=== PATIENT | male | born 1965 | race Caucasian/White ===

== ENCOUNTER 2020-07-12 17:36 | Emergency (ER) | payer MEDICARE, SELFPAY ==
[2020-07-12 17:37] VITALS: BP 134/72; PULSE 89; RESP 16; TEMP 36.6; O2SAT 96; BMI 28.9
--- NOTE | 2020-07-12 17:50 | ED.VIS.GEN ---
History of Present Illness Chief Complaint: Rash Informant: Patient Onset: Weeks Context: Gradual Onset Current Severity: Moderate Maximum Severity: Moderate Narrative: Patient presents with what he believes is an allergic reaction. He reports redness, itching, and burning sensation to his face, hands, neck for the past 2 weeks. Patient states he had a similar episode a couple years ago when he was drinking monster energy drinks. When he stopped drinking those his symptoms resolved. He states he is not currently drinking energy drinks and does not know what he may be reacting to. He did take a few Benadryl earlier today. He denies any intraoral lesions. No difficulty swallowing or breathing. - Past Medical History (1) GERD (gastroesophageal reflux disease) Status: Acute (2) Hepatitis C Status: Acute (3) COPD (chronic obstructive pulmonary disease) Status: Chronic Past Medical History - Allergies and Home Meds Allergies/Adverse Reactions: Allergies Penicillins Allergy (Verified 07/12/20 17:38) Hives Primary Care Physician: Niki Dunn [employer], [employer] [NON-STAFF] - 1-2 Weeks Review of Systems General: Denies: Chills, Fever Eyes: Denies: Visual changes - bilaterally ENT: Denies: Bilateral ear pain Cardiovascular: Denies: Chest pain Respiratory: Denies: Dyspnea, Cough Gastrointestinal: Denies: Abdominal pain, Vomiting, Diarrhea Musculoskeletal: Denies: Extremity Pain Skin: Reports: Rash Neurological: Denies: Headache Hematologic: Denies: Easy bruising, Easy bleeding Allergy: Denies: Uticaria Physical Exam Vital Signs/Narrative: Vital Signs Temp Pulse Resp BP Pulse Ox 07/12/20 17:37 97.8 F 89 16 134/72 H 96 Inital Vital Signs reviewed: Yes General: Well nourished, Well developed Head: Normocephalic ENT: Moist mucous membranes Cardiovascular: Regular rate, Regular rhythm Respiratory: No distress, CTA bilaterally Abdomen: Soft, Nontender Skin: - - Skin erythema over the face and upper neck. Slight skin thickening. No blisters or open wounds. Neurological: Alert, Oriented x3 Psychological: Normal affect Diagnostic/Tx/Re-eval - Medical Decision Making Patient was given Benadryl, prednisone, Pepcid. On repeat evaluation he states he started to feel some improvement. He will be given prescriptions for the same. ED Disposition - Plan for ED Patient: Disposition: Home or Assisted Living Diagnosis: Allergic reaction Instructions: ED General Allergic Reactions Prescriptions: DiphenhydrAMINE [Benadryl] 50 mg PO TID PRN PRN #30 capsule PRN Reason: Rash/Topical Irritation Transmission Status: Pending to [facility] Prednisone [Deltasone] 60 mg PO DAILY #15 tablet Transmission Status: Pending to [facility] Famotidine [Pepcid] 20 mg PO BID #28 tab Transmission Status: Pending to [facility] Referrals: Traci Church MD [STAFF PHYSICIAN] - As Needed
[2020-07-12] MEDS: predniSONE 20 MG Tablet 60 MG PO (17:53)
[2020-07-12] MEDS: Famotidine 20 MG Tablet 40 MG PO (17:53)
[2020-07-12] MEDS: DiphenhydrAMINE 25 MG Capsule 50 MG PO (17:55)
[2020-07-12 20:14] VITALS: RESP 16
== END 2020-07-12 20:15 | disposition home or self-care (01) ==
LOC: ED 17:59
PROVIDERS: Emergency Provider Emergency Medicine
DX: T78.40XA Allergy, unspecified, initial encounter (principal); X58.XXXA Exposure to other specified factors, initial encounter; K21.9 Gastro-esophageal reflux disease without esophagitis; J44.9 Chronic obstructive pulmonary disease, unspecified; Z86.19 Personal history of other infectious and parasitic diseases
CPT/HCPCS: 99283

== ENCOUNTER 2020-07-16 10:11 | Emergency (ER) | payer MEDICARE, SELFPAY ==
[2020-07-16 10:13] VITALS: BP 132/91; PULSE 95; RESP 16; TEMP 36.8; O2SAT 98; BMI 29.1
--- NOTE | 2020-07-16 10:31 | ED.DCSUM_ITS ---
- ER Visit Summary Date of Service: 07/16/20 Chief Complaint: [Allergic reaction] History of Present Illness: The patient is a 55 M [presents to the emergency department complaint of an allergic reaction that started a week and a half ago. Patient complains of redness to the face as well as itching and burning skin. Patient has never had this reaction before. He denies any new medications or new soaps or detergents. Patient is on 3 medications that he takes chronically including Thorazine, Cogentin, and BuSpar. Patient states symptoms are particularly worse in sunlight. Patient was seen in the emergency department several days ago and prescribed Benadryl, Pepcid, and prednisone. Patient state s his symptoms are no better. Patient denies recent illness. He denies lip or tongue swelling or difficulty breathing.] Patient states that as long as he keeps compresses on his face the sensation feels better but now the skin is starting to break down a little bit in the corners of his eyes. Patient denies any fevers. Patient states that oftentimes he feels fine in the mornings but as soon as he goes outside symptoms really tend to get much worse. Physical Examination: [HEENT-PERRLA, EOMI. Cranial nerves II through XII grossly intact. TMs clear. Mucous membranes moist. No adenopathy. Patient does have diffuse facial erythema involving the neck as well. No evidence of erythema noted to the chest or abdomen or lower extremities. Does have some faint erythema to the dorsum of the hands. Cardiovascular-regular rate and rhythm without murmur or ectopy Lungs-clear to auscultation, chest wall stable without crepitus or subcu emphysema Abdomen-normoactive bowel sounds, soft, nontender, no rebound or rigidity, no peritoneal signs. Extremities-intact ?4, normal range of motion, normal pulses, atraumatic] Test Results: [CBC with differential is normal. Chemistries unremarkable. LFTs were normal.] Emergency Department Course and Treatment: [] Treatment Plan: [At this point I suspect a possible photosensitivity reaction related to the the current medications he is taking specifically the Thorazine. I advised him to discuss this with his psychiatrist to see if they want him to discontinue it and potentially add a different medication to treat his psychiatric issues. I will also refer patient to dermatology. Patient to continue with his prednisone and Benadryl and Pepcid.] Disposition: [Discharged home in stable condition] Impression: [Allergic reaction/photosensitivity-suspect secondary to Thorazine] This note was generated with [employer] dictation software. It may contain incorrect words, spelling, and punctuation that were not noted in review of the chart prior to signing ED Disposition - Plan for ED Patient: Referrals: Care Physician,No Primary [Primary Care Provider] -
[2020-07-16 11:26] LABS: Absolute Lymphocyte Count 2.55 X10^3/uL (0.83-4.51); Absolute Neutrophil Count 7.6 X10^3/uL (2.0-7.7); Basophil# 0.03 X10^3/uL; Basophil% 0.3 % (0-1); Eosinophil# 0.04 X10^3/uL; Eosinophils% 0.4 % (0-5); Hemoglobin 16.7 g/dL (13.0-16.5); Lymphocyte # 2.55 X10^3/ul (4.0); Lymphocyte % 22.6 % (19-41); Mean Corp Hgb Conc 30.9 g/dL (32-36); Mean Corpuscular Hgb 28.6 pg (27.0-32.0); Mean Corpuscular Volume 92.5 fL (80-94); Mean Platelet Vol. 10.8 fl (6.2-12.0); Monocyte% 8.9 % (0-10); NRBC Flagged by Analyzer 0 % (0-5); Neutrophil # 7.64 X10^3/uL (2.7-7.7); Neutrophil % 67.5 % (47-70); Platelet Count 230 K/mm3 (150-450); RBC Distribution Width CV 14.3 % (11.6-14.6); Red Blood Count 5.84 M/mm3 (4.6-6.2); White Blood Count 11.3 K/mm3 (4.4-11.0)
[2020-07-16 11:42] LABS: ALB/GLOB Ratio 0.8 RATIO (0.9-2.4); AST(SGOT) 25 U/L (15-37); Alanine Aminotransfer ALT/SGPT 57 U/L (16-61); Albumin, Serum 3.6 g/dL (3.2-5.0); Alkaline Phosphatase 87 U/L (45-117); Anion Gap 4 (5-15); BUN 13 mg/dL (7-18); BUN/Creat Ratio 14.7 RATIO (10-20); Calcium,Total 8.9 mg/dL (8.5-10.1); Chloride 107 mmol/L (98-107); Creatinine, Serum 0.88 mg/dL (0.70-1.30); EST Glomerular Filtration Rate 95 mL/min (>60); Est Glom Filt Rate - Afr Amer 114 mL/min (>60); Estimated Creatinine Clearance 86.59 ml/min; Globulin 4.3 g/dL (2.2-4.2); Glucose 82 mg/dL (74-106); Potassium 3.6 mmol/L (3.5-5.1); Protein, Total 7.9 g/dL (6.4-8.2); Sodium Level 135 mmol/L (136-145)
--- NOTE | 2020-07-16 11:57 | ED.DEP ---
ED Disposition - Plan for ED Patient: Instructions: ED General Allergic Reactions, ED Allergic Reaction Local Other Referrals: Care Physician,No Primary [Primary Care Provider] - Arnoldo Cisneros MD [STAFF PHYSICIAN] - 3-5 Days Additional Instructions: Call your psychiatrist to discontinue your Thorazine as I suspect you may be having a photosensitivy reaction to it.
[2020-07-16 12:16] VITALS: BP 117/96; PULSE 96; RESP 18; O2SAT 95
== END 2020-07-16 12:17 | disposition home or self-care (01) ==
LOC: ED 11:35
PROVIDERS: Emergency Provider Emergency Medicine
DX: T78.40XA Allergy, unspecified, initial encounter (principal); R21 Rash and other nonspecific skin eruption; X58.XXXA Exposure to other specified factors, initial encounter; Z72.0 Tobacco use
CPT/HCPCS: 80053; 85025; 99282; A4216

== ENCOUNTER 2020-08-12 14:27 | Emergency (ER) | payer MEDICARE, SELFPAY ==
[2020-08-12 14:28] VITALS: BP 123/86; PULSE 90; RESP 18; TEMP 36.6; O2SAT 98; BMI 28.5
--- NOTE | 2020-08-12 15:01 | CT_ITS ---
HISTORY: hemoptysis EXAMINATION: CTA Chest WO/W Contrast Injection TECHNIQUE: Helically acquired images were obtained of the chest following IV contrast as per pulmonary angiogram protocol with 3D reconstructions. A radiation dose optimization technique was used for this scan. IV Contrast dosage and agent: 100mL Isovue-370 COMPARISON: None FINDINGS: LUNGS, PLEURA AND LARGE AIRWAYS: Small focus of reticular airspace disease right apex, no masses, consolidation, or edema. No pleural effusion or thickening. No pneumothorax. THYROID: No thyroid lesions. PULMONARY ARTERIES: Normal in caliber. No pulmonary embolism. AORTA AND GREAT VESSELS: No aneurysm or dissection. HEART AND PERICARDIUM: Heart size is normal. No pericardial effusion. No signs of right heart strain. MEDIASTINUM AND MARIA LUISA: No mediastinal or hilar adenopathy. Esophagus is unremarkable. Small hiatal hernia. UPPER ABDOMEN: No acute pathology. Partially imaged cystic lesion left upper quadrant displacing spleen anteriorly with irregular wall thickening to 5 mm and peripheral calcifications, lesion is likely of renal origin but etiology is not demonstrated on this study. BONES: Chronic fracture right 11th rib posteriorly. No acute bony abnormalities. CT/CTA Chest W/WO Contrast IMPRESSION: Negative CTA Chest. Small focus of airspace disease right apex of unknown chronicity, possible fibrosis. No acute consolidative process. Incompletely evaluated cystic lesion left upper quadrant. Although the origin from the left kidney is not demonstrated, this may represent a Bosniak III renal cystic mass requiring urological consultation. Recommend further evaluation by CT of the abdomen and pelvis for complete characterization. Individualized dose optimization techniques were used for this CT. at 1640 Reported and signed by: García Garcia MD Electronically Signed: García Garcia MD at 16:39 EDT Tel , Service support ,
--- NOTE | 2020-08-12 15:19 | EX.ED.DYSGE1 ---
HPI History of Present Illness Chief Complaint: Cough Informant: patient Narrative Narrative: Patient is a 55-year-old male with history of COPD, chronic tobacco use, alcohol dependency (currently sober) and GERD presenting with hemoptysis. Patient states he is a lifelong smoker of a pack a day. He notes 2 days ago and today he had an episode of coughing up blood. He is very clear that he coughed it up and he did not throw it up. He denies any associated shortness of breath or chest pain. He states today he coughed up bright red blood about the size of half dollar. It only happened once today. Because it is the second time it happened, he came to the emergency room for further evaluation. He denies any night sweats, difficulty breathing, chest pain, bleeding issues, melena or any other complaints. He is not on any oral anticoagulation or aspirin. No other complaints at this time. Patient is currently staying at a sober house, really recovered. Prior similar symptoms: No [facility] Medical History (Updated 08/12/20 @ 16:[address] Rosana Chapin, ) Hepatitis Home Medications Thorazine 600 mg PO DAILY 07/12/20 [History Last Taken Unknown] benztropine mg PO BID 07/12/20 [History Last Taken Unknown] buspirone 15 mg PO DAILY 07/12/20 [History Last Taken Unknown] diphenhydramine HCl 50 mg PO TID PRN PRN #30 capsule 07/12/20 [Rx Last Taken Unknown] famotidine 20 mg PO BID #28 tab 07/12/20 [Rx Last Taken Unknown] prednisone 60 mg PO DAILY #15 tablet 07/12/20 [Rx Last Taken Unknown] Allergy/AdvReac Type Severity Reaction Status Date / Time Penicillins Allergy Hives Verified 08/12/20 14:31 Social History Smoking Status: Current every day smoker [facility] ED Constitutional Constitutional ED: Denies chills, fever(s) or malaise Eyes Eyes: Denies blurry vision or loss of vision ENT ENT ED: Denies rhinorrhea or sore throat Cardiovascular Cardiovascular: Denies chest pain or dizziness Respiratory/Chest Respiratory/Chest: Reports cough, sputum and other Details: Hemoptysis ; Denies dyspnea Gastrointestinal Gastrointestinal: Denies diarrhea, melena, nausea or vomiting Genitourinary Genitourinary ED: Denies dysuria or hematuria Musculoskeletal Musculoskeletal: Denies arthralgias or myalgias Integumentary Denies rash or wounds Neurologic Neurologic: Denies focal weakness or headache(s) Psychiatric Psychiatric: Denies anxiety or behavioral changes EXAM Physical Exam Const Vital Signs: 08/12/20 14:28 08/12/20 15:15 08/12/20 17:09 Temperature 98 F Temperature Source Temporal Pulse Rate 90 72 Respiratory Rate 18 18 Respiratory Effort Normal Respiratory Depth Normal Respiratory Pattern Normal Blood Pressure 123/86 H 124/78 H Blood Pressure Mean 98 Pulse Ox 98 99 Oxygen Delivery Method Room Air Positive well nourished, well developed and no apparent distress General Appearance ED: well developed; Negative for pallor HEENT Reports normocephalic and moist mucous membranes HEENT Narrative: Small amount of dried blood noted on his lips. atraumatic Nose: no nasal discharge General Ear: hearing grossly impaired External Ear: external ears normal Mouth ED: Yes moist mucous membranes abnormal Mouth: moist mucous membranes abnormal Eyes PERRL and EOMs intact bilaterally Neck full ROM, no lymphadenopathy, supple, no meningeal signs and no JVD Chest Wall inspection of chest normal Resp normal respiratory effort and normal air movement Cardio regular rate and regular rhythm GI normal to inspection, nondistended, normoactive bowel sounds Extremity normal to inspection and full ROM Neuro oriented x3 and no focal motor deficits Sensorium / Orientation: alert Psych mental status grossly normal and thought process normal Skin no rashes or lesions noted and no wounds General Skin Exam: Negative for jaundice or pallor MDM MDM MDM Narrative Medical decision making narrative: Patient evaluated for 2 episodes of hemoptysis that occurred over the past 3 days. He appears nontoxic no acute distress. His vital signs are normal. Does not appear anemic. He has clear breath sounds. No active bleeding on my exam. Patient is insistent that this is hemoptysis and not hematemesis. Lab work is largely unremarkable. He has elevation of his hemoglobin of 16.6 but this likely secondary to his chronic tobacco use. Given his history of smoking, CTA of the chest obtained to rule out PE, large mass, pneumonia or other causes of his hemoptysis. No acute findings. Patient did have an area of fibrosis at the apex of his lung and an incidental likely renal cyst. Patient is informed of these findings. He is informed that the renal system to be evaluated further to make sure it is not cancerous. He states he has been told he has a cyst of his kidneys in the past. Patient is referred to PCP as well as pulmonology for further evaluation. Patient does not require admission at this time. Patient is counseled on signs and symptoms requiring return to the emergency room. Patient verbalizes agreement and understand this plan. Patient discharged home in stable and improved condition. Lab Data Attestation: I reviewed the patient's lab results. Labs: Laboratory Results - last 24 hr 08/12/20 08/12/20 08/12/20 15:15 15:15 15:15 WBC 8.6 RBC 5.69 Hgb 16.6 H Hct 49.9 MCV 87.7 MCH 29.2 MCHC 33.3 RDW Std Deviation 43.7 RDW Coeff of Oscar 13.5 Plt Count 301 MPV 10.6 Immature Gran % (Auto) 0.100 Neut % (Auto) 63.7 Lymph % (Auto) 26.2 Caswell % (Auto) 8.3 Eos % (Auto) 1.5 Baso % (Auto) 0.2 Absolute Neuts (auto) 5.5 Absolute Lymphs (auto) 2.25 Nucleated RBC % 0 Differential Comment SCANNED PT 12.0 INR 0.9 APTT 26.1 Sodium 139 Potassium 3.8 Chloride 107 Carbon Dioxide 27.0 Anion Gap 5 BUN 11 Creatinine 0.75 Estim Creat Clear Calc 101.60 Est GFR (MDRD) Af Amer 137 Est GFR (MDRD) Non-Af 113 BUN/Creatinine Ratio 14.6 Glucose 116 H Calcium 9.1 Total Bilirubin 0.30 AST 35 ALT 78 H Alkaline Phosphatase 94 Total Protein 7.9 Albumin 3.5 Globulin 4.4 H Albumin/Globulin Ratio 0.8 L Radiography Diagnostic Testing: Radiology Impression Chest CTA 08/12/20 15:01 IMPRESSION: Negative CTA Chest. Small focus of airspace disease right apex of unknown chronicity, possible fibrosis. No acute consolidative process. Incompletely evaluated cystic lesion left upper quadrant. Although the origin from the left kidney is not demonstrated, this may represent a Bosniak III renal cystic mass requiring urological consultation. Recommend further evaluation by CT of the abdomen and pelvis for complete characterization. Individualized dose optimization techniques were used for this CT. at 1640 Reported and signed by: García Garcia MD Electronically Signed: García Garcia MD at 16:39 EDT Tel , Service support , Discharge Plan Triage Chief Complaint: Cough ED Provider: Rosana Chapin Dx/Rx/DC Orders Clinical Impression: Cough with hemoptysis, Renal cyst Instructions: ED Hemoptysis Prescriptions: No Action benztropine 2 MG tablet PO BID RF: 0 buspirone 15 MG tablet 15 mg PO DAILY RF: 0 Thorazine 600 mg PO DAILY RF: 0 diphenhydramine HCl 25 MG capsule 50 mg PO TID PRN PRN (Reason: Rash/Topical Irritation) Qty: 30 RF: 0 prednisone 20 MG tablet 60 mg PO DAILY Qty: 15 RF: 0 famotidine 20 MG tablet 20 mg PO BID Qty: 28 RF: 0 Primary Care Provider: Care Physician,No Primary Referrals: Rafiq Peña MD [STAFF PHYSICIAN] - Mike Dumont MD [STAFF PHYSICIAN] - Charlene Esparza [NON-STAFF] - Care Physician,No Primary [Primary Care Provider] - Activity Restrictions/Additional Instructions: Your CT did not show any blood clots, pneumonia or other acute infection to explain your coughing up blood. It did incidentally show cyst on your kidney which needs to be evaluated further to make sure is not cancer. You have been refer to primary care doctor as well as a lung doctor for follow-up. Disposition Disposition: Home, self care Discharge Date/Time: 08/12/20 17:10
[2020-08-12 15:22] LABS: Absolute Lymphocyte Count 2.25 X10^3/uL (0.83-4.51); Absolute Neutrophil Count 5.5 X10^3/uL (2.0-7.7); Basophil# 0.02 X10^3/uL; Basophil% 0.2 % (0-1); Eosinophil# 0.13 X10^3/uL; Eosinophils% 1.5 % (0-5); Hematocrit 49.9 % (40-54); Hemoglobin 16.6 g/dL (13.0-16.5); Lymphocyte # 2.25 X10^3/ul (0.83-4.51); Lymphocyte % 26.2 % (19-41); Mean Corp Hgb Conc 33.3 g/dL (32-36); Mean Corpuscular Hgb 29.2 pg (27.0-32.0); Mean Corpuscular Volume 87.7 fL (80-94); Mean Platelet Vol. 10.6 fl (6.2-12.0); Monocyte# 0.71 X10^3/uL; Monocyte% 8.3 % (0-10); NRBC Flagged by Analyzer 0 % (0-5); Neutrophil # 5.46 X10^3/uL (2.7-7.7); Neutrophil % 63.7 % (47-70); POSITIVE MORPHOLOGY YES; Platelet Count 301 K/mm3 (150-450); RBC Distribution Width CV 13.5 % (11.6-14.6); RBC Distribution Width SD 43.7 fl (35.1-43.9); Red Blood Count 5.69 M/mm3 (4.6-6.2); White Blood Count 8.6 K/mm3 (4.4-11.0)
[2020-08-12 15:27] LABS: Differential Indicated SCAN CRITERIA MET
[2020-08-12 15:31] LABS: International Normalized Ratio 0.9; Partial Thromboplast Time 26.1 Seconds (24.1-36.2)
[2020-08-12 15:40] LABS: ALB/GLOB Ratio 0.8 RATIO (0.9-2.4); AST(SGOT) 35 U/L (15-37); Alanine Aminotransfer ALT/SGPT 78 U/L (16-61); Albumin, Serum 3.5 g/dL (3.2-5.0); Alkaline Phosphatase 94 U/L (45-117); Anion Gap 5 (5-15); BUN 11 mg/dL (7-18); BUN/Creat Ratio 14.6 RATIO (10-20); Calcium,Total 9.1 mg/dL (8.5-10.1); Chloride 107 mmol/L (98-107); Creatinine, Serum 0.75 mg/dL (0.70-1.30); EST Glomerular Filtration Rate 113 mL/min (>60); Est Glom Filt Rate - Afr Amer 137 mL/min (>60); Globulin 4.4 g/dL (2.2-4.2); Glucose 116 mg/dL (74-106); Potassium 3.8 mmol/L (3.5-5.1); Protein, Total 7.9 g/dL (6.4-8.2); Sodium Level 139 mmol/L (136-145)
[2020-08-12 15:59] LABS: Differential Comment SCANNED
[2020-08-12 17:09] VITALS: BP 124/78; PULSE 72; RESP 18; O2SAT 99
== END 2020-08-12 17:10 | disposition home or self-care (01) ==
PROVIDERS: Emergency Provider Emergency Medicine
DX: R04.2 Hemoptysis (principal); N28.1 Cyst of kidney, acquired; J84.10 Pulmonary fibrosis, unspecified; J44.9 Chronic obstructive pulmonary disease, unspecified; K21.9 Gastro-esophageal reflux disease without esophagitis; F17.210 Nicotine dependence, cigarettes, uncomplicated
CPT/HCPCS: 71275; 80053; 85025; 85610; 85730; 99283; Q9967; A4216

== ENCOUNTER → 2020-09-02 06:39 | Outpatient (CLI) | payer MEDICARE, SELFPAY ==
[2020-08-12 14:28] VITALS: BMI 28.5
--- NOTE | 2020-09-02 06:43 | CT_ITS ---
STUDY: CT ABDOMEN WITH CONTRAST REASON FOR EXAM: Male, 55 years old. BENIGN NEOPLASM OF LEFT KIDNEY RADIATION DOSAGE (If Supplied By Facility): CTDIvol = ( 15.00 ) mGy, DLP = ( 714.11 ) mGycm TECHNIQUE: Transaxial images were obtained post I.V. administration of IV 100mL Isovue-300, and oral contrast. Sagittal and coronal images were reconstructed. Individualized dose optimization techniques were used for this CT. COMPARISON: None. FINDINGS: The visualized lung bases are unremarkable. Coronary artery calcification. Normal liver. Normal gallbladder and extrahepatic biliary system. Normal spleen. Normal pancreas. Normal bilateral adrenal glands. There is a 7.5 cm x 10.3 cm x 8.5 cm cystic structure with the peripheral calcification in the superior medial midportion of the left kidney. A similar appearing cystic nodule with peripheral calcification is seen in the mid upper aspect of the right kidney. This measures 2.6 cm x 2.2 cm. Normal visualized stomach. Normal small intestine. Normal colon. The appendix is visualized and appears normal. There is scattered atherosclerotic calcification of the abdominal aorta, without a demonstrated aneurysm. Normal inferior vena cava. Normal retroperitoneum. Normal abdominal wall. Normal osseous structures. CT/Abdomen WITH IV Contrast IMPRESSION: Bilateral renal cystic masses with peripheral calcifications more prominent on the left side. Follow-up is recommended. This is a BOSNIAK 3 type of renal changes. Electronically Signed: Bud Burleson MD at 13:36 EDT , Service support ,
== END ==
PROVIDERS: Referring Provider Nurse Practitioner Adult Health; Visit Provider Nurse Practitioner Adult Health
DX: D30.02 Benign neoplasm of left kidney (principal)
CPT/HCPCS: 74160; Q9967